=== PATIENT | female | born 1945 | race African-American/Black ===

== ENCOUNTER 2018-11-04 23:31 | Emergency (ER) | payer OTHER ==
[~2018-11-04] VITALS: Ht 172.7 cm; Wt 85.3 kg
[~2018-11-04 23:31] MED LIST: AVAPRO; GLUCOPHAGE1000 MG PO; MEDROLDOSEPACK PO; NORCO 5-325 TA1 EACH PO; NOVOLIN 70100 UNIT/5; ZOCOR
[2018-11-05] MEDS ORDERED: NEURONTIN 300300 M1 PO (01:36)
[2018-11-05] MEDS ORDERED: COREG25 MG PO (01:37)
[2018-11-05] MEDS ORDERED: LANTUS100 UNIT/M SUBQ (01:39)
[2018-11-05] MEDS ORDERED: HUMALOG100 UNIT/1 SUBQ (01:40)
[2018-11-05 01:52] LABS: ABSOLUTE NEUTROPHILS 4.1 thou/uL (1.4-8.2); BASOPHILS 0.6 % (0.0-2.0); EOSINOPHILS 1.1 % (0.0-3.0); HEMATOCRIT 34.3 % (37.0-47.0); HEMOGLOBIN 11.2 gm/dL (12.0-15.0); LYMPHOCYTES 33.9 % (24.0-44.0); MCH 30.6 pg (26.0-34.0); MCHC 32.7 g/dL (28.0-37.0); MCV 93.6 fL (80.0-100.0); MONOCYTES 10.5 % (1.0-8.0); PLATELET COUNT 364 thou/uL (150-400); POLYS 53.9 % (36.0-66.0); RBC 3.67 mil/uL (4.20-5.00); RDW 14.5 % (10.5-14.5); WBC 7.7 thou/uL (4.0-11.0)
[2018-11-05 02:03] LABS: CREATININE 1.4 mg/dL (0.6-1.0); POTASSIUM 3.5 mmol/L (3.5-5.1)
[2018-11-05 03:14] VITALS: BP 114/52
== END 2018-11-05 03:17 | disposition home or self-care (01) ==
LOC: ER 23:31
PROVIDERS: Emergency Medicine
DX: N93.9 Abnormal uterine and vaginal bleeding, unspecified (principal); E11.9 Type 2 diabetes mellitus without complications; I10 Essential (primary) hypertension; E78.00 Pure hypercholesterolemia, unspecified; Z79.4 Long term (current) use of insulin; Z88.0 Allergy status to penicillin; Z88.5 Allergy status to narcotic agent